=== PATIENT | male | born 1960 | race Caucasian/White ===

== ENCOUNTER 2025-01-21 06:27 | Day surgery (SDC) | payer BC, SELFPAY | END 2025-01-21 12:55 | disposition home or self-care (01) | LOC: GI 06:27 | PROVIDERS: ATTENDING PHYSICIAN Specialist | DX: Z12.11 Encounter for screening for malignant neoplasm of colon (principal); K57.30 Diverticulosis of large intestine without perforation or abscess without bleeding; N40.0 Benign prostatic hyperplasia without lower urinary tract symptoms | CPT/HCPCS: G0121 ==